=== PATIENT | female | born 1990 | race Caucasian/White ===

== ENCOUNTER 2017-04-15 17:13 | Emergency (ER) | payer MEDICAID ==
[~2017-04-15] VITALS: Ht 162.6 cm; Wt 52.2 kg
[~2017-04-15 17:13] MED LIST: GADOVERSETAMIDE 2.5 MMOL/5 ML VIAL ONE
--- NOTE | 2017-04-15 17:22 | NUR ---
Pt placed in room 1a, notified of pt's s/s.
--- NOTE | 2017-04-15 17:44 | NUR ---
Called [facility] line ( [phone]) for neuro consult as requested by , spoke with Kiet who stated Dr. Díaz will call back.
--- NOTE | 2017-04-15 17:53 | NUR ---
called code stroke per md order.
--- NOTE | 2017-04-15 17:57 | NUR ---
pt to ct scan.
[2017-04-15 18:10] LABS: BASOPHILS % (AUTO) 0.4 % (0.0-2.0); EOSINOPHILS % (AUTO) 0.4 % (0.0-7.0); HEMATOCRIT 39.8 % (31.2-41.9); LYMPHOCYTES # (AUTO) 2.1 K/uL (20.0-40.0); LYMPHOCYTES % (AUTO) 22.1 % (20.5-51.5); MEAN CORPUSCULAR HEMOGLOBIN 30.6 uug (24.7-32.8); MEAN CORPUSCULAR HGB CONC 35 g/dL (32.3-35.6); MONOCYTES # (AUTO) 0.5 K/uL (2.0-10.0); MONOCYTES % (AUTO) 5.3 % (0.0-11.0); NEUTROPHILS % (AUTO) 71.8 % (38.5-71.5); PLATELET COUNT (AUTO) 210 K/uL (179-408); RED BLOOD CELL COUNT(AUTO) 4.58 MIL/uL (3.63-4.92); WHITE BLOOD COUNT (AUTO) 9.7 K/uL (3.8-11.8)
[2017-04-15 18:15] LABS: CREATININE 0.7 mg/dL (0.6-1.3)
--- NOTE | 2017-04-15 18:18 | NUR ---
radiologist talking to dyana travis.
--- NOTE | 2017-04-15 18:20 | NUR ---
pt commmmunicating with [facility].
[2017-04-15 18:21] LABS: BILIRUBIN,DIRECT 0.1 mg/dL (0.0-0.2); BILIRUBIN,TOTAL 0.3 mg/dL (0.2-1.0); TOTAL PROTEIN, SERUM 7.4 g/dL (6.4-8.2)
--- NOTE | 2017-04-15 18:28 | NUR ---
dyana travis talking to stroke center
--- NOTE | 2017-04-15 18:30 | NUR ---
called michael at [facility] to arrange stat mri
--- NOTE | 2017-04-15 18:35 | NUR ---
pieter from [facility], eta 15 minutes
--- NOTE | 2017-04-15 18:40 | NUR ---
[facility].
--- NOTE | 2017-04-15 18:46 | NUR ---
TEXTED DR. VERGARA FOR MRI APPROVAL.
--- NOTE | 2017-04-15 18:47 | NUR ---
CALLING [facility] FOR ETA.
--- NOTE | 2017-04-15 18:55 | NUR ---
TABLE TIME 8PM NURSE COLTON IS AWARE OF IT.
--- NOTE | 2017-04-15 18:56 | NUR ---
SHEILA FROM [facility] MRI CALLED AND SAID THE TABLE TIME FOR MRI IS 1949.
--- NOTE | 2017-04-15 19:17 | NUR ---
REPORT TAKEN FROM DAY SHIFT RN. ASSUMING PT CARE AT THIS TIME.
--- NOTE | 2017-04-15 19:31 | NUR ---
PT BEING TRANSFERED TO [facility] FOR MRI IN STABLE CONDITION
--- NOTE | 2017-04-15 20:50 | NUR ---
pATIENT BACK FROM MRI. NO ACUTE DISTRESS NOTED. VSS. FAMILY AT BEDSIDE.
--- NOTE | 2017-04-15 21:44 | NUR ---
Patient discharged to home in stable conditon. Written and verbal after care instructions given. Patient verbalizes understanding of instructions.
[2017-04-15 21:45] VITALS: BP 116/81
== END 2017-04-15 21:46 | disposition home or self-care (01) ==
LOC: ER 17:14
DX: G43.B0 Ophthalmoplegic migraine, not intractable (principal)
CPT/HCPCS: 36415; 70030-TC; 70450; 70553; 71045; 85025; 85730; 93005; A4663; A9579

== ENCOUNTER 2017-10-06 23:25 | Emergency (ER) | payer MEDICAID ==
[~2017-10-06] VITALS: Ht 162.6 cm; Wt 49.0 kg
[2017-10-07] MEDS ORDERED: METOCLOPRAMIDE HCL 10 MG/2 ML VIAL IV ONE (00:45)
[2017-10-07] MEDS ORDERED: METOCLOPRAMIDE HCL 10 MG/2 ML VIAL ONE (01:02)
--- NOTE | 2017-10-07 01:25 | NUR ---
PT [id number]. ABLE TO WALK IN STEADY GAIT. SPEECH CLEAR. RESPONSIVE TO VERBAL + TACTILE STIMULI. PT STATES "I FEEL SO MUCH BETTER."
--- NOTE | 2017-10-07 01:32 | NUR ---
IV removed. Catheter intact and site benign. Pressure and 4x4 gauze applied to site. No bleeding noted.
--- NOTE | 2017-10-07 01:37 | NUR ---
Patient discharged to home in stable conditon. Written and verbal after care instructions given. Patient verbalizes understanding of instructions.
[2017-10-07 01:38] VITALS: BP 136/79
== END 2017-10-07 01:41 | disposition home or self-care (01) ==
LOC: ER 23:33
DX: G43.B0 Ophthalmoplegic migraine, not intractable (principal)
CPT/HCPCS: 96374; 99284; A4663; J2765